=== PATIENT | female | born 1950 | race Caucasian/White ===

== ENCOUNTER 2017-07-11 12:08 | Emergency (ER) | payer BC ==
[~2017-07-11] VITALS: Ht 167.6 cm; Wt 82.0 kg
[~2017-07-11 12:08] MED LIST: RIVA15 PO
[2017-07-11 12:15] VITALS: BP 143/81; PULSE 80; RESP 16; TEMP 98.1; O2SAT 97
[2017-07-11] MEDS ORDERED: ZANT150T2 PO (13:34)
[2017-07-11] MEDS ORDERED: PRED20 PO (14:22)
--- NOTE | 2017-07-11 14:23 | PD ---
HPI Chief Complaint: Skin Problem Time Seen by Provider: 13:46 Travel History International Travel<30 days: No Contact w/Intl Traveler<30days: No Traveled to known affect area: No History of Present Illness HPI 66-year-old female presents emergency department for evaluation of dermatitis primarily to her left cheek, over her nose with small amount noted on the right cheek. Patient states she was visiting family when the symptoms occurred a couple days ago. Patient has topical steroid ointment that she was previously prescribed that she put on that significantly lessened the symptoms. The rash is mild erythema, no vesicles noted. She states it is itchy but not painful. Patient was concerned that it might be shingles so she came to the emergency department for evaluation. Patient has a fever, chills, malaise, shortness breath, nausea, vomiting, diarrhea. She denies any history of shingles and states she got vaccine. PFSH Past Medical History Arthritis: No Asthma: No Autoimmune Disease: No Blood Disorders: No Heart Rhythm Problems: No Cancer: No Cardiovascular Problems: No High Cholesterol: No Chemotherapy: No Chest Pain: No Congestive Heart Failure: No COPD: No Cerebrovascular Accident: No Diminished Hearing: No Endocrine: No GERD: Yes Glaucoma: No Genitourinary: No Headaches: No Hepatitis: No Hiatal Hernia: No Hypertension: No Immune Disorder: No Kidney Stones: No Musculoskeletal: No Neurologic: No Psychiatric: No Reproductive: No Respiratory: No Immunizations Current: Yes Migraines: No Myocardial Infarction: No Radiation Therapy: No Renal Failure: No Seizures: No Sickle Cell Disease: No Sleep Apnea: No Ulcer: No ?: Not Past Surgical History Abdominal Surgery: No AICD: No Appendectomy: No Arteriovenous Shunt: No Cardiac Surgery: No Cholecystectomy: No Ear Surgery: No Endocrine Surgery: No Eye Surgery: No Genitourinary Surgery: No Gynecologic Surgery: Yes (HYSTERECTOMY 1995) Hysterectomy: Yes Insulin Pump: No Joint Replacement: No Neurologic Surgery: Yes (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) Oral Surgery: No Pacemaker: No Thoracic Surgery: No Other Surgery: Yes (VESSEL ABLASION X 2 LEFT L UPPER LEG, VERICOSE/SPIDER VEIN REMOVALS L LOWER) Social History Alcohol Use: Yes (4 DRINKS PER WEEK) Tobacco Use: No (QUIT) Substance Use: No Allergies-Medications (Allergen,Severity, Reaction): Coded Allergies: azithromycin (Unverified Allergy, Severe, RASH, 07/11/17) hydrocortisone (Verified Allergy, Severe, RASH, 07/11/17) penicillin G (Unverified Allergy, Severe, RASH, 07/11/17) Reported Meds & Prescriptions Reported Meds & Active Scripts Active Reported Zantac (Ranitidine HCl) 150 Mg Tab 150 Mg PO DAILY PRN Review of Systems Except as stated in HPI: all other systems reviewed are Neg Physical Exam Narrative GENERAL: Well-nourished, well-developed 66-year-old female patient in no acute distress. Nontoxic appearing. SKIN: Mild erythema noted to the left cheek over the nose and slightly on the right cheek. No eye involvement. HEAD: Normocephalic. Atraumatic. EYES: No scleral icterus. No injection or drainage. NECK: Supple, trachea midline. No JVD or lymphadenopathy. CARDIOVASCULAR: Regular rate and rhythm without murmurs, gallops, or rubs. RESPIRATORY: Breath sounds equal bilaterally. No accessory muscle use. GASTROINTESTINAL: Abdomen soft, non-tender, nondistended. MUSCULOSKELETAL: No cyanosis, or edema. BACK: Nontender without obvious deformity. No CVA tenderness. Data Data Last Documented VS Vital Signs Date Time Temp Pulse Resp B/P (MAP) Pulse Ox O2 Delivery O2 Flow Rate FiO2 07/11/17 12:15 98.1 80 16 143/81 (101) 97 MDM Medical Decision Making Medical Screen Exam Complete: Yes Emergency Medical Condition: Yes Differential Diagnosis Differential diagnoses include but not limited to contact dermatitis, rosacea, atopic dermatitis Narrative Course 66-year-old female presents to emergency room for evaluation of erythema to the left cheek over the nose and slightly on the right cheek 2 days. Patient is unsure with irritant was that caused it. Patient was previously prescribed topical steroid ointment she applied it to her face and the symptoms greatly subsided. Patient was concerned that it might be shingles so she came for evaluation of a second opinion. Patient reassured that it does not clinically consistent with shingles presentation. Patient will be given a short dose of prednisone to lessen the symptoms and discharged home with instructions to keep the skin clean and dry, follow-up with her primary care and return to the emergency Department with any worsening condition. Diagnosis Primary Impression: Contact dermatitis Qualified Codes: L25.9 - Unspecified contact dermatitis, unspecified cause Referrals: Primary Care Physician Patient Instructions: Contact Dermatitis (ED), General Instructions Additional Instructions: Please return to emergency department if your symptoms return or worsen. Follow up with your primary care provider. Take medications as prescribed. Keep rash clean and dry. Med/Other Pt SpecificInfo: Prescription(s) given Scripts Prednisone (Prednisone) 20 Mg Tab 20 MG PO DAILY for 3 Days, #3 TAB 0 Refills Prov: Tonya Jack 07/11/17 Disposition: 01 DISCHARGE HOME Condition: Stable Tonya Jack Jul 11, 2017 14:23
== END 2017-07-11 14:30 | disposition home or self-care (01) ==
LOC: PHED 12:08 → PHEFT 14:30
DX: L25.9 Unspecified contact dermatitis, unspecified cause (principal); K21.9 Gastro-esophageal reflux disease without esophagitis
CPT/HCPCS: 99283

== ENCOUNTER → 2017-10-06 | Outpatient (CLI) | payer MEDICARE ==
[~2017-10-06] VITALS: Ht 170.2 cm; Wt 83.0 kg
[~2017-10-06] MED LIST changes: +ALPR.25 PO; +CHLORHEXIDINE GLUCONATE 2 % 1 PACK (2 CLOTHS) TOPICAL PRN; +CITRTAB7 PO; +FAMOTIDINE 20 MG/2 ML VIAL ONE; +LACTATED RINGER'S 1000 ML INJ 1,000 ML IV ONE; +LACTATED RINGER'S 1000 ML IV PRN; +LIDOCAINE HCL 1% PF 5 ML SYRINGE OTHER ONE; +METOPROLOL TARTRATE 25 MG TAB PO PRN; +OCUVTAB PO; +PANT40TA3 PO; +POVIDONE IODINE 5% (ANTISEPSIS KIT) 4 APPLICATIONS EACH NARE PRN; +PRED20 PO; +PROPOFOL 200 MG/20 ML AMP IV ONE; +REST30CA PO; -RIVA15 PO; +SODIUM CHLORID 0.9% 500 ML IV PRN; +VITA500T83 PO; +ZANT150T2 PO
--- NOTE | 2017-10-06 11:42 | PD.PROCEDR ---
GI Procedure PROCEDURE PERFORMED Endoscopic ultrasound INDICATION FOR PROCEDURE Anderson's esophagus PROCEDURE: The procedure, risks and benefits were discussed with Ms. Doss and informed consent was obtained. Anesthesia sedated her with Diprivan. She was placed in the left lateral decubitus position. Endoscopic ultrasound: The Pentax videoscope was introduced through the oropharynx and advanced to the proximal stomach FINDINGS: Endoscopic findings of the distal esophagus revealed 5 layers of normal echogenicity with no variation and no thickness The endoscopic view of the distal esophagus reveals a simple 2-1/2 cm Anderson's tongue and a moderate sized hiatal hernia otherwise unremarkable EGD to the duodenum No lymphadenopathy was noted ESTIMATED BLOOD LOSS: None SPECIMENS REMOVED: None COMPLICATIONS: None IMPRESSION: Short segment Anderson's esophagus Moderate sized hiatal hernia PLAN: Continue with PPI Follow-up in clinic in 3 weeks EGD in 1 year Raoul Montana MD Oct 06, 2017 11:42
[2017-10-06 13:10] VITALS: BP 158/84; PULSE 78; RESP 18; TEMP 98.1; O2SAT 95
--- NOTE | 2017-10-06 23:00 | EKG ---
Date Performed: 10/06/2017 Time Performed: 08:19:51 PTAGE: 67 years EKG: Sinus rhythm NORMAL ECG PREVIOUS TRACING : 01/16/2007 15.45 Since the previous tracing, no significant change noted DOCTOR: Anthony Vinson Interpretating Date/Time 10/06/2017 22:59:39
== END ==
LOC: HSDC 08:00
PROVIDERS: ATTEND Internal Medicine Gastroenterology
DX: K22.70 Barrett's esophagus without dysplasia (principal); K44.9 Diaphragmatic hernia without obstruction or gangrene; Z01.810 Encounter for preprocedural cardiovascular examination
CPT/HCPCS: 00731; 43259; 93005; J7120